=== PATIENT | male | born 1990 | race Caucasian/White ===

== ENCOUNTER 2017-03-26 10:25 | Inpatient (IN) | payer OTHER ==
--- NOTE | 2017-03-26 13:41 | HP ---
CIWA Score - CIWA Score Nausea/Vomitin-No Nausea/No Vomiting Muscle Tremors: 4-Moderate,w/Arms Extend Anxiety: 4-Mod. Anxious/Guarded Agitation: 4-Moderately Restless Paroxysmal Sweats: 3 Orientation: 0-Oriented Tacttile Disturbances: 0-None Auditory Disturbances: 0-None Visual Disturbances: 0-None Headache: 2-Mild CIWA-Ar Total Score: 17 Admission ROS BHS - HPI Chief Complaint: I need to be here for help. Allergies/Adverse Reactions: Allergies Allergy/AdvReac Type Severity Reaction Status Date / Time No Known Allergies Allergy Verified 03/26/17 13:24 History of Present Illness: pt is a 26yr old male with a history of alcohol, heroin, xanax dependence seeking detox for treatment. Exam Limitations: No Limitations - Ebola screening Have you traveled outside of the country in the last 21 days: No Have you had contact with anyone from an Ebola affected area: No Have you been sick,other than usual withdrawal symptoms: No Do you have a fever: No - Review of Systems Constitutional: Chills, Diaphoresis, Loss of Appetite, Night Sweats, Changes in sleep, Unintentional Wgt. Loss EENT: reports: Tearing Respiratory: reports: No Symptoms reported Cardiac: reports: No Symptoms Reported GI: reports: Poor Appetite, Poor Fluid Intake, Indigestion : reports: No Symptoms Reported Musculoskeletal: reports: Back Pain Integumentary: reports: Flushing, Sweating Neuro: reports: Headache, Tingling, Tremors Endocrine: reports: Excessive Sweating, Flushing, Intolerance to Cold, Intolerance to Heat Hematology: reports: No Symptoms Reported Psychiatric: reports: Judgement Intact, Mood/Affect Appropiate, Orientated x3, Agitated, Anxious Other Systems: Reviewed and Negative Patient History - Patient Medical History Hx Anemia: No Hx Asthma: Yes Hx Chronic Obstructive Pulmonary Disease (COPD): No Hx Cancer: No Hx Cardiac Disorders: No Hx Congestive Heart Failure: No Hx Hypertension: No Hx Hypercholesterolemia: No Hx Pacemaker: No HX Cerebrovascular Accident: No Hx Seizures: No Hx Dementia: No Hx Diabetes: No Hx Gastrointestinal Disorders: No Hx Liver Disease: No Hx Genitourinary Disorders: No Hx Sexually Transmitted Disorders: No Hx Renal Disease (ESRD): No Hx Thyroid Disease: No Hx Human Immunodeficiency Virus (HIV): No Hx Hepatitis C: No Hx Depression: Yes Hx Suicide Attempt: Yes (Tried to put head through window.) Hx Bipolar Disorder: Yes Hx Schizophrenia: No - Patient Surgical History Past Surgical History: Yes Hx Neurologic Surgery: No Hx Cataract Extraction: No Hx Cardiac Surgery: No Hx Lung Surgery: No Hx Breast Surgery: No Hx Breast Biopsy: No Hx Abdominal Surgery: No Hx Appendectomy: No Hx Cholecystectomy: No Hx Genitourinary Surgery: No Hx Section: No Hx Orthopedic Surgery: Yes (R thumb. sx for fx) Anesthesia Reaction: No - PPD History Previous Implant?: Yes Documented Results: Negative w/proof Implanted On Prior R Admission?: Yes Date: 06/21/16 Results: 0 mm PPD to be Administered?: No - Smoking Cessation Smoking history: Current every day smoker Have you smoked in the past 12 months: Yes Aproximately how many cigarettes per day: 20 Hx Chewing Tobacco Use: No Initiated information on smoking cessation: Yes 'Breaking Loose' booklet given: 03/26/17 - Substance & Tx. History Hx Alcohol Use: Yes Hx Substance Use: Yes Substance Use Type: Alcohol, Cocaine, Heroin Hx Substance Use Treatment: Yes ([facility] 05/2016) - Substances Abused Alprazolam (Xanax) Route: Oral Frequency: Daily Amount used: 8mg Age of first use: 15 Date of Last Use: 03/25/17 Benzodiazepine (Klonopin) Route: Oral Frequency: Daily Amount used: 6mg Age of first use: 15 Date of Last Use: 03/25/17 Cocaine Route: Injection Frequency: Daily Amount used: 1 gram Age of first use: 21 Date of Last Use: 03/25/17 Heroin Route: Injection Frequency: Daily Amount used: 10 bag Age of first use: 21 Date of Last Use: 03/25/17 Alcohol Route: Oral Frequency: Daily Amount used: 5 shots Age of first use: 17 Date of Last Use: 03/25/17 Family Disease History - Family Disease History Family History: Denies Admission Physical Exam S - Vital Signs Vital Signs: Vital Signs - 24 hr 03/26/17 11:27 Temperature 97.1 F L Pulse Rate 75 Respiratory 18 Rate Blood Pressure 118/63 - Physical General Appearance: Yes: Appropriately Dressed, Moderate Distress, Thin, Tremorous, Irritable, Sweating, Anxious HEENTM: Yes: Hearing grossly Normal, Normal Voice, Rhinorrhea Respiratory: Yes: Lungs Clear, Normal Breath Sounds, No Respiratory Distress Neck: Yes: No masses,lesions,Nodules Breast: Yes: Within Normal Limits Cardiology: Yes: Regular Rhythm, Regular Rate, S1, S2 Abdominal: Yes: Normal Bowel Sounds, Non Tender, Soft Genitourinary: Yes: Within Normal Limits Back: Yes: Normal Inspection Musculoskeletal: Yes: Back pain Extremities: Yes: Normal Capillary Refill, Normal Inspection, Tremors Neurological: Yes: Fully Oriented, Alert, Normal Response Integumentary: Yes: Normal Color, Track Dailey, Other (abscess to forearm) Lymphatic: Yes: Within Normal Limits - Diagnostic (1) Alcohol dependence with uncomplicated withdrawal Current Visit: Yes Status: Chronic (2) Bipolar disorder Current Visit: No Status: Acute (3) Cocaine dependence Current Visit: Yes Status: Chronic Qualifiers: Substance use status: uncomplicated Qualified Code(s): F14.20 - Cocaine dependence, uncomplicated (4) Methadone maintenance therapy patient Current Visit: Yes Status: Chronic Comment: last dose of 130mg given today at program pending verification. (5) Nicotine dependence Current Visit: Yes Status: Chronic Qualifiers: Nicotine product type: cigarettes Substance use status: uncomplicated Qualified Code(s): F17.210 - Nicotine dependence, cigarettes, uncomplicated (6) Sedative, hypnotic or anxiolytic dependence with withdrawal, uncomplicated Current Visit: Yes Status: Chronic Cleared for Admission [facility] - Detox or Rehab [facility] Level of Care: Medically Managed Detox Regimen/Protocol: Valium [facility] Breath Alcohol Content Breath Alcohol Content: 0 Urine Drug Screen - Results Drug Screen Negative: No Urine Drug Screen Results: MADHAVI-Cocaine, OPI-Opiates, BZO-Benzodiazepines, MTD- Methadone
[2017-03-26] MEDS ORDERED: P-EPHED 60MG/TRIPROLIDI 2.5MG TABLET PO PRN (13:45)
[2017-03-26] MEDS ORDERED: MAG HYDROX/AL HYDROX/SIMETH 30 ML UNIT-DOSE CUP PO PRN (13:45)
[2017-03-26] MEDS ORDERED: diphenhydrAMINE HCL 50 MG CAPSULE PO PRN (13:45)
[2017-03-26] MEDS ORDERED: MAGNESIUM CITRATE 300 ML BOTTLE PO PRN (13:45)
[2017-03-26] MEDS ORDERED: LOPERAMIDE HCL 2 MG CAPSULE PO PRN (13:45)
[2017-03-26] MEDS ORDERED: ACETAMINOPHEN 325 MG TABLET (FP) PO PRN (13:45)
[2017-03-26] MEDS ORDERED: MAGNESIUM HYDROX 2400MG/30ML ORAL SUSPENSION 30 ML CUP PO PRN (13:45)
[2017-03-26] MEDS ORDERED: NICOTINE POLACRILEX 4 MG GUM BUC PRN (13:45)
[2017-03-26] MEDS ORDERED: hydrOXYzine PAMOATE 50 MG CAPSULE (FP) PO PRN (13:45)
[2017-03-26] MEDS ORDERED: IBUPROFEN 400 MG TABLET (FP) PO PRN (13:45)
[2017-03-26] MEDS ORDERED: guaiFENesin/D-METHORPHAN HB 10 ML UNIT-DOSE CUPS PO PRN (13:45)
[2017-03-26] MEDS ORDERED: MENTHOL/PHENOL 1 EACH UD MM PRN (13:45)
[2017-03-26] MEDS ORDERED: ALBUTEROL SO4 6.7 GM HFA INHALER IH PRN (13:46)
[2017-03-26] MEDS ORDERED: diazePAM 5 MG TABLET PO ONE (14:48)
[2017-03-26] MEDS: diazePAM 5 MG TABLET PO SCH ×2 (15:19→22:17)
[2017-03-26 22:00] LABS: URINE APPEARANCE CLEAR; URINE BILIRUBIN NEGATIVE (NEGATIVE); URINE BLOOD NEGATIVE (NEGATIVE); URINE COLOR AMBER; URINE GLUCOSE (UA) NEGATIVE (NEGATIVE); URINE KETONE NEGATIVE (NEGATIVE); URINE LEUK ESTERASE NEGATIVE (NEGATIVE); URINE NITRITE NEGATIVE (NEGATIVE); URINE UROBILINOGEN NEGATIVE mg/dL (0.2-1.0)
[2017-03-26 22:06] LABS: URINE PROTEIN 1+ (NEGATIVE)
[2017-03-26 22:14] LABS: URINE MUCUS MANY; URINE RBC 1 /hpf (0-3); URINE WBC 1 /hpf (3-5)
[2017-03-26] MEDS: SULFAMETHOXAZOLE/TRIMETHOPRIM 800MG/160MG D.S. TABLET PO SCH (22:15)
[2017-03-26] MEDS: THIAMINE HCL 100 MG TABLET (FP) PO SCH (22:15)
[2017-03-27] MEDS ORDERED: METHADONE HCL 10 MG TABLET ONE (05:12)
[2017-03-27] MEDS ORDERED: METHADONE HCL 40 MG DISPERSABLE TABLET ONE (05:13)
[2017-03-27] MEDS: METHADONE 120 MG, METHADONE 10 MG PO SCH (05:21)
[2017-03-27] MEDS: diazePAM 5 MG TABLET PO SCH ×3 (05:21→22:05)
[2017-03-27] MEDS ORDERED: METHADONE HCL 10 MG TABLET PO SCH (06:00)
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
[2017-03-27] MEDS: PRENATAL VITAMINS W/ FOLIC ACID TABLET (FP) PO SCH (10:05)
[2017-03-27] MEDS: SULFAMETHOXAZOLE/TRIMETHOPRIM 800MG/160MG D.S. TABLET PO SCH ×2 (10:05→22:06)
[2017-03-27] MEDS: NICOTINE 21 MG/24 HOURS TOPICAL PATCH TD SCH (10:06)
[2017-03-27] MEDS: diazePAM 5 MG TABLET PO PRN ×2 (10:06→20:05)
[2017-03-27 10:34] LABS: MCH 31.8 pg (25.7-33.7); MCHC 33.8 g/dl (32.0-35.9); MEAN CELL VOLUME 94.1 fl (80-96); MEAN PLT VOLUME 9.3 fl (7.5-11.1); PLATELET COUNT 245 K/MM3 (134-434); RDW 13.2 % (11.9-15.9); WHITE BLOOD COUNT 4.1 K/mm3 (4.0-10.0)
[2017-03-27 10:53] LABS: ALBUMIN 3.6 g/dl (3.4-5.0); ALK PHOS 69 U/L (45-117); ANION GAP 7 (8-16); BILIRUBIN,TOTAL 0.6 mg/dL (0.2-1.0); CALCIUM 8.9 mg/dL (8.5-10.1); CO2 30 mmol/L (21-32); CREATININE 1.1 mg/dL (0.7-1.3); GLUCOSE,RANDOM 107 mg/dL (74-106); SGOT/AST 20 U/L (15-37); SGPT/ALT 24 U/L (12-78); TOT PROT 7.5 g/dl (6.4-8.2)
--- NOTE | 2017-03-27 12:46 | PN ---
S CIWA - CIWA Score Nausea/Vomitin Muscle Tremors: 4-Moderate,w/Arms Extend Anxiety: 2 Agitation: 2 Paroxysmal Sweats: 3 Orientation: 0-Oriented Tacttile Disturbances: 0-None Auditory Disturbances: 2-Mild Harshness/Frighten Visual Disturbances: 0-None Headache: 2-Mild CIWA-Ar Total Score: 18 BHS Progress Note (SOAP) Subjective: Interrupted sleep, Stomach Cramping, Tremors, H/A, Lower Back Ache, Body Aches, Anxious, Fatigue. Objective: PT. A & O X 3, OBSERVED AMBULATING ON UNIT. NO ACUTE DISTRESS. 03/27/17 12:44 Vital Signs Temperature 97.3 F L 03/27/17 09:53 Pulse Rate 72 03/27/17 09:53 Respiratory Rate 18 03/27/17 09:53 Blood Pressure 122/70 03/27/17 09:53 O2 Sat by Pulse Oximetry (%) Laboratory Tests 03/26/17 03/27/17 03/27/17 21:00 06:15 06:15 WBC 4.1 D RBC 3.88 L Hgb 12.3 Hct 36.5 MCV 94.1 MCH 31.8 MCHC 33.8 RDW 13.2 D Plt Count 245 D MPV 9.3 Sodium 140 Potassium 4.3 Chloride 103 Carbon Dioxide 30 Anion Gap 7 L BUN 16 Creatinine 1.1 D Creat Clearance w eGFR > 60 Random Glucose 107 H Calcium 8.9 Total Bilirubin 0.6 AST 20 ALT 24 D Alkaline Phosphatase 69 D Total Protein 7.5 Albumin 3.6 Urine Color Elvi Urine Appearance Clear Urine pH 5.0 D Ur Specific [place] 1.025 Urine Protein 1+ H Urine Glucose (UA) Negative Urine Ketones Negative Urine Blood Negative Urine Nitrite Negative Urine Bilirubin Negative Urine Urobilinogen Negative Ur Leukocyte Esterase Negative Urine RBC 1 Urine WBC 1 Ur Epithelial Cells Rare Urine Mucus Many LABS NOTED. RPR RESULT PENDING. 03/27/17 12:46 Assessment: 03/27/17 12:45 WITHDRAWAL SYMPTOMS. Plan: CONTINUE DETOX. INCREASE PO FLUID INTAKE.
[2017-03-27] MEDS: busPIRone HCL 5 MG TABLET PO SCH ×2 (12:48→22:06)
[2017-03-27] MEDS: risperiDONE 0.25 MG TABLET (FP) PO SCH ×2 (12:49→22:06)
[2017-03-27] MEDS: THIAMINE HCL 100 MG TABLET (FP) PO SCH (22:05)
[2017-03-27] MEDS: DIVALPROEX NA *ER* EXTEND REL 500 MG TABLET.SA (FP) PO SCH (22:06)
[2017-03-28] MEDS ORDERED: METHADONE HCL 10 MG TABLET ONE (04:28)
[2017-03-28] MEDS ORDERED: METHADONE HCL 40 MG DISPERSABLE TABLET ONE (04:28)
[2017-03-28] MEDS: METHADONE 120 MG, METHADONE 10 MG PO SCH (05:25)
[2017-03-28] MEDS: diazePAM 5 MG TABLET PO PRN ×2 (05:27→19:23)
[2017-03-28] MEDS: NICOTINE 21 MG/24 HOURS TOPICAL PATCH TD SCH (10:09)
[2017-03-28] MEDS: diazePAM 5 MG TABLET PO SCH ×2 (10:09→22:09)
[2017-03-28] MEDS: risperiDONE 0.25 MG TABLET (FP) PO SCH ×2 (10:09→22:10)
[2017-03-28] MEDS: PRENATAL VITAMINS W/ FOLIC ACID TABLET (FP) PO SCH (10:09)
[2017-03-28] MEDS: busPIRone HCL 5 MG TABLET PO SCH ×2 (10:09→22:10)
[2017-03-28] MEDS: SULFAMETHOXAZOLE/TRIMETHOPRIM 800MG/160MG D.S. TABLET PO SCH ×2 (11:22→22:09)
[2017-03-28] MEDS ORDERED: BISACODYL 5 MG TABLET.DR (FP) PO ONE (13:07)
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
[2017-03-28] MEDS: SENNOSIDES 8.6MG TABLET (FP) PO SCH (22:09)
[2017-03-28] MEDS: THIAMINE HCL 100 MG TABLET (FP) PO SCH (22:09)
[2017-03-28] MEDS: DIVALPROEX NA *ER* EXTEND REL 500 MG TABLET.SA (FP) PO SCH (22:10)
[2017-03-29] MEDS ORDERED: METHADONE HCL 10 MG TABLET ONE (04:45)
[2017-03-29] MEDS ORDERED: METHADONE HCL 40 MG DISPERSABLE TABLET ONE (04:46)
[2017-03-29] MEDS: METHADONE 120 MG, METHADONE 10 MG PO SCH (05:24)
[2017-03-29] MEDS: diazePAM 5 MG TABLET PO PRN (05:25)
--- NOTE | 2017-03-29 10:00 | EKG ---
Test Reason : Blood Pressure : / mmHG Vent. Rate : 064 BPM Atrial Rate : 064 BPM P-R Int : 136 ms QRS Dur : 088 ms QT Int : 440 ms P-R-T Axes : 058 049 049 degrees QTc Int : 453 ms NORMAL SINUS RHYTHM WITH SINUS ARRHYTHMIA NORMAL ECG NO PREVIOUS ECGS AVAILABLE Confirmed by YAHAIRA PEREZ MD ([id number]) on 03/29/2017 9:59:38 AM Referred By: Confirmed By:YAHAIRA PEREZ MD
[2017-03-29] MEDS: NICOTINE 21 MG/24 HOURS TOPICAL PATCH TD SCH (10:19)
[2017-03-29] MEDS: PRENATAL VITAMINS W/ FOLIC ACID TABLET (FP) PO SCH (10:19)
[2017-03-29] MEDS: diazePAM 5 MG TABLET PO SCH ×2 (10:19→22:11)
[2017-03-29] MEDS: SULFAMETHOXAZOLE/TRIMETHOPRIM 800MG/160MG D.S. TABLET PO SCH ×2 (10:19→22:11)
[2017-03-29] MEDS: busPIRone HCL 5 MG TABLET PO SCH ×2 (10:19→22:12)
[2017-03-29] MEDS: risperiDONE 0.25 MG TABLET (FP) PO SCH ×2 (10:19→22:12)
--- NOTE | 2017-03-29 11:21 | PN ---
BHS Progress Note (SOAP) Subjective: Sweating,interrupted sleep,restless Objective: 03/29/17 11:20 Vital Signs - 8 hr 03/29/17 03/29/17 03/29/17 03:30 04:00 09:09 Temperature 96.8 F L 96.7 F L Pulse Rate 75 94 H Respiratory 16 18 16 Rate Blood Pressure 109/65 137/81 Laboratory Last Values WBC 4.1 K/mm3 (4.0-10.0) D 03/27/17 06:15 RBC 3.88 M/mm3 (4.00-5.60) L 03/27/17 06:15 Hgb 12.3 GM/dL (11.7-16.9) 03/27/17 06:15 Hct 36.5 % (35.4-49) 03/27/17 06:15 MCV 94.1 fl (80-96) 03/27/17 06:15 MCH 31.8 pg (25.7-33.7) 03/27/17 06:15 MCHC 33.8 g/dl (32.0-35.9) 03/27/17 06:15 RDW 13.2 % (11.9-15.9) D 03/27/17 06:15 Plt Count 245 K/MM3 (134-434) D 03/27/17 06:15 MPV 9.3 fl (7.5-11.1) 03/27/17 06:15 Sodium 140 mmol/L (136-145) 03/27/17 06:15 Potassium 4.3 mmol/L (3.5-5.1) 03/27/17 06:15 Chloride 103 mmol/L (98-107) 03/27/17 06:15 Carbon Dioxide 30 mmol/L (21-32) 03/27/17 06:15 Anion Gap 7 (8-16) L 03/27/17 06:15 BUN 16 mg/dL (7-18) 03/27/17 06:15 Creatinine 1.1 mg/dL (0.7-1.3) D 03/27/17 06:15 Creat Clearance w eGFR > 60 (>60) 03/27/17 06:15 Random Glucose 107 mg/dL (74-106) H 03/27/17 06:15 Calcium 8.9 mg/dL (8.5-10.1) 03/27/17 06:15 Total Bilirubin 0.6 mg/dL (0.2-1.0) 03/27/17 06:15 AST 20 U/L (15-37) 03/27/17 06:15 ALT 24 U/L (12-78) D 03/27/17 06:15 Alkaline Phosphatase 69 U/L (45-117) D 03/27/17 06:15 Total Protein 7.5 g/dl (6.4-8.2) 03/27/17 06:15 Albumin 3.6 g/dl (3.4-5.0) 03/27/17 06:15 Urine Color Elvi 03/26/17 21:00 Urine Appearance Clear 03/26/17 21:00 Urine pH 5.0 (5.0-8.0) D 03/26/17 21:00 Ur Specific [place] 1.025 (1.005-1.025) 03/26/17 21:00 Urine Protein 1+ (NEGATIVE) H 03/26/17 21:00 Urine Glucose (UA) Negative (NEGATIVE) 03/26/17 21:00 Urine Ketones Negative (NEGATIVE) 03/26/17 21:00 Urine Blood Negative (NEGATIVE) 03/26/17 21:00 Urine Nitrite Negative (NEGATIVE) 03/26/17 21:00 Urine Bilirubin Negative (NEGATIVE) 03/26/17 21:00 Urine Urobilinogen Negative mg/dL (0.2-1.0) 03/26/17 21:00 Ur Leukocyte Esterase Negative (NEGATIVE) 03/26/17 21:00 Urine RBC 1 /hpf (0-3) 03/26/17 21:00 Urine WBC 1 /hpf (3-5) 03/26/17 21:00 Ur Epithelial Cells Rare /hpf (FEW) 03/26/17 21:00 Urine Mucus Many 03/26/17 21:00 RPR Titer Nonreactive (NONREACTIVE) 03/27/17 06:15 labs noted Assessment: 03/29/17 11:21 withdrawal sx. Plan: continue detox
[2017-03-29] MEDS: THIAMINE HCL 100 MG TABLET (FP) PO SCH (22:11)
[2017-03-29] MEDS: DIVALPROEX NA *ER* EXTEND REL 500 MG TABLET.SA (FP) PO SCH (22:11)
[2017-03-29] MEDS: SENNOSIDES 8.6MG TABLET (FP) PO SCH (22:12)
[2017-03-30] MEDS ORDERED: METHADONE HCL 10 MG TABLET ONE (05:02)
[2017-03-30] MEDS ORDERED: METHADONE HCL 40 MG DISPERSABLE TABLET ONE (05:03)
[2017-03-30] MEDS: METHADONE 120 MG, METHADONE 10 MG PO SCH (05:33)
[2017-03-30 09:48] VITALS: BP 120/75; PULSE 92; TEMP 97.8
[2017-03-30] MEDS ORDERED: diazePAM 5 MG TABLET PO SCH (10:00)
== END 2017-03-30 08:34 | disposition home or self-care (01) | DRG 773 ==
LOC: YASAS 10:25 → Y3N 14:40
PROVIDERS: ADMIT Internal Medicine; ATTEND Surgery
PROC: HZ2ZZZZ Detoxification Services for Substance Abuse Treatment (ICD-10-PCS; principal; 2017-03-30)
DX: F11.20 Opioid dependence, uncomplicated (principal); F13.230 Sedative, hypnotic or anxiolytic dependence with withdrawal, uncomplicated; F10.230 Alcohol dependence with withdrawal, uncomplicated; F14.20 Cocaine dependence, uncomplicated; F17.210 Nicotine dependence, cigarettes, uncomplicated; F31.9 Bipolar disorder, unspecified; F43.10 Post-traumatic stress disorder, unspecified; F90.9 Attention-deficit hyperactivity disorder, unspecified type
CPT/HCPCS: 36415; 80053; 81003; 81015; 85027; 86593; 93005; 93010

== ENCOUNTER 2017-06-18 11:39 | Inpatient (IN) | payer OTHER ==
[2017-06-18 12:51] VITALS: BMI 23.1
--- NOTE | 2017-06-18 16:29 | HP ---
CIWA Score - CIWA Score Nausea/Vomitin-No Nausea/No Vomiting Muscle Tremors: 4-Moderate,w/Arms Extend Anxiety: 4-Mod. Anxious/Guarded Agitation: 4-Moderately Restless Paroxysmal Sweats: 1-Minimal Palms Moist Orientation: 0-Oriented Tacttile Disturbances: 0-None Auditory Disturbances: 0-None Visual Disturbances: 0-None Headache: 1-Very Mild CIWA-Ar Total Score: 14 Admission ROS S - HPI Chief Complaint: withdrawal sx Allergies/Adverse Reactions: Allergies Allergy/AdvReac Type Severity Reaction Status Date / Time No Known Allergies Allergy Verified 06/18/17 16:08 History of Present Illness: 26 YEARS OLD MALE WITH LONG HISTORY OF XANAX NICOTINE DEPENDENCE, TAKES METHADONE 130 MG DAILY, HAS ASTHMA AND BIPOLAR II IS ADMITTED TO DETOX IV COCAINE LEFT FORE ARM SWELLING, ERYTHEMA, PAIN 2/10, CELLULITES, BEGIN KEFLEX 500 Q6H X 4 DAYS Exam Limitations: No Limitations - Ebola screening Have you traveled outside of the country in the last 21 days: No Have you had contact with anyone from an Ebola affected area: No Have you been sick,other than usual withdrawal symptoms: No Do you have a fever: No - Review of Systems Constitutional: Loss of Appetite, Changes in sleep, Unintentional Wgt. Loss EENT: reports: No Symptoms Reported Respiratory: reports: SOB with Exertion Cardiac: reports: No Symptoms Reported GI: reports: Poor Appetite, Poor Fluid Intake, Abdominal cramping : reports: No Symptoms Reported Musculoskeletal: reports: Back Pain, Joint Pain, Muscle Pain (LEFT FOR ARM), Neck Pain, Other (RIGHT THUMB LIMITED MOBILITY DUE TO HISTORY OF FX, SURGICALLY CORRECTED) Integumentary: reports: Change in Color (LEFT FORE ARM IV COCAINE) Neuro: reports: Seizure (2006 XANAX WITHDRAWAL RELATED), Tremors Endocrine: reports: No Symptoms Reported Hematology: reports: No Symptoms Reported Psychiatric: reports: Judgement Intact, Orientated x3, Anxious, Depressed Other Systems: Reviewed and Negative Patient History - Patient Medical History Hx Anemia: No Hx Asthma: Yes Hx Chronic Obstructive Pulmonary Disease (COPD): Yes Hx Cancer: No Hx Cardiac Disorders: No Hx Congestive Heart Failure: No Hx Hypertension: No Hx Hypercholesterolemia: No Hx Pacemaker: No HX Cerebrovascular Accident: No Hx Seizures: Yes (2006 LAST EPISODE NO TREATMENT) Hx Dementia: No Hx Diabetes: No Hx Gastrointestinal Disorders: No Hx Liver Disease: No Hx Genitourinary Disorders: No Hx Sexually Transmitted Disorders: No Hx Renal Disease (ESRD): No Hx Thyroid Disease: No Hx Human Immunodeficiency Virus (HIV): No Hx Hepatitis C: No Hx Depression: No Hx Suicide Attempt: Yes (Tried to put head through window.) Hx Bipolar Disorder: Yes Hx Schizophrenia: No - Patient Surgical History Past Surgical History: Yes Hx Neurologic Surgery: No Hx Cataract Extraction: No Hx Cardiac Surgery: No Hx Lung Surgery: No Hx Breast Surgery: No Hx Breast Biopsy: No Hx Abdominal Surgery: No Hx Appendectomy: No Hx Cholecystectomy: No Hx Genitourinary Surgery: No Hx Orthopedic Surgery: Yes (R thumb. sx for fx) Anesthesia Reaction: No - PPD History Previous Implant?: Yes Documented Results: Negative w/proof Implanted On Prior [facility] Admission?: Yes Date: 06/21/16 Results: 0 mm PPD to be Administered?: Yes - Smoking Cessation Smoking history: Current every day smoker Have you smoked in the past 12 months: Yes Aproximately how many cigarettes per day: 20 Cigars Per Day: 0 Hx Chewing Tobacco Use: No Initiated information on smoking cessation: Yes 'Breaking Loose' booklet given: 06/18/17 - Substance & Tx. History Hx Alcohol Use: No Hx Substance Use: Yes Substance Use Type: Heroin, Tranquilizers Hx Substance Use Treatment: Yes (03/26-03/30/17 [facility]) Family Disease History - Family Disease History Family Disease History: [place]: Grandparent, Other: Mother (BACK PAIN KILLER) Admission Physical Exam BHS - Vital Signs Vital Signs: Vital Signs - 24 hr 06/18/17 12:48 Temperature 97.3 F L Pulse Rate 73 Respiratory 18 Rate Blood Pressure 113/71 - Physical General Appearance: Yes: Appropriately Dressed, Mild Distress, Thin, Tremorous, Irritable, Sweating, Anxious HEENTM: Yes: Hearing grossly Normal, Normal ENT Inspection, Normocephalic, Normal Voice Respiratory: Yes: Chest Non-Tender, No Respiratory Distress, No Accessory Muscle Use, Wheezing, Hyperresonant, Inspiration Neck: Yes: Supple, Trachea in good position Breast: Yes: Breasts Symetrical Cardiology: Yes: Regular Rhythm, Regular Rate, S1, S2 Abdominal: Yes: Non Tender, Soft, Decreased BS Genitourinary: Yes: Within Normal Limits Back: Yes: Normal Inspection Musculoskeletal: Yes: full range of Motion, Gait Steady, Muscle Pain (LEFT FOR ARM) Extremities: Yes: Normal Range of Motion, Non-Tender, Tremors, Swelling (KRIS FOR ARM) Neurological: Yes: Fully Oriented, Alert, Motor Strength 5/5, Normal Response, Depressed Affect Integumentary: Yes: Warm, Track Dailey Lymphatic: Yes: Within Normal Limits - Diagnostic (1) Methadone maintenance therapy patient Current Visit: Yes Status: Chronic Comment: last dose of 130mg pending verification. (2) Nicotine dependence Current Visit: Yes Status: Acute Qualifiers: Nicotine product type: cigarettes Substance use status: in withdrawal Qualified Code(s): F17.213 - Nicotine dependence, cigarettes, with withdrawal; F17.213 - Nicotine dependence, cigarettes, with withdrawal (3) Sedative, hypnotic or anxiolytic dependence with withdrawal, uncomplicated Current Visit: Yes Status: Acute (4) Asthma Current Visit: Yes Status: Chronic Qualifiers: Asthma severity: moderate Asthma complication type: with status asthmaticus (5) Weight loss Current Visit: Yes Status: Acute (6) Bipolar II disorder Current Visit: Yes Status: Suspected (7) Cellulitis of arm, left Current Visit: Yes Status: Acute Comment: KEFLEX 500 MG Q6H X 4 DAYS Cleared for Admission S - Detox or Rehab S Level of Care: Medically Managed Detox Regimen/Protocol: Valium S Breath Alcohol Content Breath Alcohol Content: 0 Urine Drug Screen - Control Is Test Valid: Yes - Results Drug Screen Negative: No Urine Drug Screen Results: MADHAVI-Cocaine, BZO-Benzodiazepines, MTD-Methadone
[2017-06-18] MEDS ORDERED: MAG HYDROX/AL HYDROX/SIMETH 30 ML UNIT-DOSE CUP PO PRN (16:37)
[2017-06-18] MEDS ORDERED: ACETAMINOPHEN 325 MG TABLET (FP) PO PRN (16:37)
[2017-06-18] MEDS ORDERED: guaiFENesin/D-METHORPHAN HB 10 ML UNIT-DOSE CUPS PO PRN (16:37)
[2017-06-18] MEDS ORDERED: MENTHOL/PHENOL 1 EACH UD MM PRN (16:37)
[2017-06-18] MEDS ORDERED: diphenhydrAMINE HCL 50 MG CAPSULE PO PRN (16:37)
[2017-06-18] MEDS ORDERED: MAGNESIUM CITRATE 300 ML BOTTLE PO PRN (16:37)
[2017-06-18] MEDS ORDERED: IBUPROFEN 400 MG TABLET (FP) PO PRN (16:37)
[2017-06-18] MEDS ORDERED: P-EPHED 60MG/TRIPROLIDI 2.5MG TABLET PO PRN (16:37)
[2017-06-18] MEDS ORDERED: LOPERAMIDE HCL 2 MG CAPSULE PO PRN (16:37)
[2017-06-18] MEDS ORDERED: MAGNESIUM HYDROX 2400MG/30ML ORAL SUSPENSION 30 ML CUP PO PRN (16:37)
[2017-06-18] MEDS ORDERED: NICOTINE 21 MG/24 HOURS TOPICAL PATCH TD PRN (16:37)
[2017-06-18] MEDS ORDERED: ALBUTEROL SO4 18 GM HFA INHALER IH PRN (16:39)
[2017-06-18] MEDS ORDERED: ALBUTEROL SO4 2.5/IPRATROPIUM 0.5 INH SOL 3 ML VIAL.NEB. NEB PRN (16:39)
[2017-06-18] MEDS ORDERED: DOCUSATE SODIUM 100 MG CAPSULE (FP) PO PRN (16:40)
[2017-06-18] MEDS ORDERED: diazePAM 5 MG TABLET PO ONE (17:30)
[2017-06-18] MEDS: BACITRACIN 0.9 GM PACKET TP SCH ×2 (18:38→22:20)
[2017-06-18] MEDS: CEPHALEXIN MONOHYDRATE 500 MG CAPSULE (UD) PO SCH ×2 (18:38→23:09)
[2017-06-18] MEDS: NICOTINE POLACRILEX 4 MG GUM BC PRN ×2 (18:39→21:02)
[2017-06-18 22:07] LABS: URINE APPEARANCE SLCLOUDY; URINE BILIRUBIN NEGATIVE (NEGATIVE); URINE BLOOD NEGATIVE (NEGATIVE); URINE COLOR YELLOW; URINE GLUCOSE (UA) NEGATIVE (NEGATIVE); URINE KETONE NEGATIVE (NEGATIVE); URINE NITRITE NEGATIVE (NEGATIVE); URINE PROTEIN NEGATIVE (NEGATIVE); URINE UROBILINOGEN NEGATIVE mg/dL (0.2-1.0)
[2017-06-18] MEDS: diazePAM 5 MG TABLET PO SCH (22:20)
[2017-06-18] MEDS: THIAMINE HCL 100 MG TABLET (FP) PO SCH (22:21)
[2017-06-19] MEDS: CEPHALEXIN MONOHYDRATE 500 MG CAPSULE (UD) PO SCH ×3 (06:20→17:28)
[2017-06-19] MEDS: diazePAM 5 MG TABLET PO SCH ×3 (06:20→22:27)
[2017-06-19] MEDS ORDERED: METHADONE HCL 10 MG TABLET PO SCH (08:45)
[2017-06-19 09:04] LABS: PLATELET COUNT 275 K/MM3 (134-434); WHITE BLOOD COUNT 4.8 K/mm3 (4.0-10.0)
[2017-06-19 09:06] LABS: MCH 29.8 pg (25.7-33.7); MCHC 32.4 g/dl (32.0-35.9); MEAN CELL VOLUME 91.8 fl (80-96); MEAN PLT VOLUME 8.3 fl (7.5-11.1); RDW 14.4 % (11.9-15.9)
[2017-06-19] MEDS ORDERED: METHADONE 120 MG, METHADONE 10 MG PO SCH (09:15)
[2017-06-19] MEDS ORDERED: METHADONE HCL 40 MG DISPERSABLE TABLET ONE (09:39)
[2017-06-19] MEDS ORDERED: METHADONE HCL 10 MG TABLET ONE (09:39)
[2017-06-19] MEDS ORDERED: METHADONE 120 MG, METHADONE 10 MG PO ONE (09:45)
[2017-06-19 10:17] LABS: URINE LEUK ESTERASE Negative (NEGATIVE)
[2017-06-19] MEDS: PRENATAL VITAMINS W/ FOLIC ACID TABLET (FP) PO SCH (10:45)
[2017-06-19] MEDS: diazePAM 5 MG TABLET PO PRN ×2 (10:45→17:28)
[2017-06-19] MEDS: BACITRACIN 0.9 GM PACKET TP SCH ×4 (10:45→22:26)
[2017-06-19] MEDS: NICOTINE POLACRILEX 4 MG GUM BC PRN ×3 (10:49→22:29)
[2017-06-19 11:03] LABS: ALBUMIN 3.3 g/dl (3.4-5.0); ALK PHOS 74 U/L (45-117); ANION GAP 7 (8-16); BILIRUBIN,TOTAL 0.3 mg/dL (0.2-1.0); CALCIUM 8.7 mg/dL (8.5-10.1); CO2 28 mmol/L (21-32); CREATININE 0.8 mg/dL (0.7-1.3); GLUCOSE,RANDOM 83 mg/dL (74-106); SGOT/AST 22 U/L (15-37); SGPT/ALT 34 U/L (12-78); TOT PROT 7.1 g/dl (6.4-8.2)
--- NOTE | 2017-06-19 11:40 | PN ---
S CIWA - CIWA Score Nausea/Vomitin-Mild Nausea/No Vomiting Muscle Tremors: 3 Anxiety: 4-Mod. Anxious/Guarded Agitation: 4-Moderately Restless Paroxysmal Sweats: 1-Minimal Palms Moist Orientation: 0-Oriented Tacttile Disturbances: 1-Very Mild Itch/Numbness Auditory Disturbances: 1-Very Mild Visual Disturbances: 2-Mild Sensitivity Headache: 1-Very Mild CIWA-Ar Total Score: 18 BHS Progress Note (SOAP) Subjective: anxious, poor sleep, shaky Objective: 06/19/17 11:39 Laboratory Tests 06/18/17 06/19/17 06/19/17 21:00 07:50 07:50 WBC 4.8 RBC 4.07 Hgb 12.1 Hct 37.4 MCV 91.8 MCH 29.8 MCHC 32.4 RDW 14.4 Plt Count 275 MPV 8.3 D Sodium 139 Potassium 4.5 Chloride 104 Carbon Dioxide 28 Anion Gap 7 L BUN 13 Creatinine 0.8 D Creat Clearance w eGFR > 60 Random Glucose 83 D Calcium 8.7 Total Bilirubin 0.3 D AST 22 ALT 34 D Alkaline Phosphatase 74 Total Protein 7.1 Albumin 3.3 L Urine Color Yellow Urine Appearance Slcloudy Urine pH 6.0 Ur Specific [place] 1.020 Urine Protein Negative Urine Glucose (UA) Negative Urine Ketones Negative Urine Blood Negative Urine Nitrite Negative Urine Bilirubin Negative Urine Urobilinogen Negative Ur Leukocyte Esterase Negative Valproic Acid RPR Titer 06/19/17 06/19/17 07:50 07:50 WBC RBC Hgb Hct MCV MCH MCHC RDW Plt Count MPV Sodium Potassium Chloride Carbon Dioxide Anion Gap BUN Creatinine Creat Clearance w eGFR Random Glucose Calcium Total Bilirubin AST ALT Alkaline Phosphatase Total Protein Albumin Urine Color Urine Appearance Urine pH Ur Specific [place] Urine Protein Urine Glucose (UA) Urine Ketones Urine Blood Urine Nitrite Urine Bilirubin Urine Urobilinogen Ur Leukocyte Esterase Valproic Acid < 3.0 L RPR Titer Nonreactive Vital Signs - 24 hr 06/18/17 06/18/17 06/18/17 12:48 18:33 23:46 Temperature 97.3 F L 98.1 F 98.2 F Pulse Rate 73 65 78 Respiratory 18 18 18 Rate Blood Pressure 113/71 108/60 122/61 06/19/17 06/19/17 06/19/17 01:18 04:28 06:30 Temperature 98.1 F Pulse Rate 86 Respiratory 18 18 16 Rate Blood Pressure 89/63 06/19/17 11:07 Temperature 97.7 F Pulse Rate 81 Respiratory 16 Rate Blood Pressure 116/50 Assessment: 06/19/17 11:39 ongoing withdrawal Plan: cont detox protocol
--- NOTE | 2017-06-19 13:21 | EKG ---
Test Reason : Blood Pressure : / mmHG Vent. Rate : 055 BPM Atrial Rate : 055 BPM P-R Int : 134 ms QRS Dur : 092 ms QT Int : 450 ms P-R-T Axes : 057 052 061 degrees QTc Int : 430 ms SINUS BRADYCARDIA POOR R WAVE PROGRESSION ABNORMAL ECG WHEN COMPARED WITH ECG OF 26-MAR-2017 14:18, NO SIGNIFICANT CHANGE WAS FOUND Confirmed by KENYA CHARLES, JUAN M ([id number]) on 06/19/2017 1:21:26 PM Referred By: Confirmed By:JUAN M ZAMBRANO MD
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
[2017-06-19] MEDS ORDERED: OLANZapine 7.5 MG TABLET PO SCH (22:00)
[2017-06-19] MEDS: OLANZapine 7.5 MG TABLET PO SCH (22:26)
[2017-06-19] MEDS: THIAMINE HCL 100 MG TABLET (FP) PO SCH (22:26)
[2017-06-19] MEDS: DIVALPROEX SODIUM 500 MG TABLET E.C. PO SCH (22:26)
[2017-06-19] MEDS: busPIRone HCL 5 MG TABLET PO SCH (22:26)
[2017-06-20] MEDS: CEPHALEXIN MONOHYDRATE 500 MG CAPSULE (UD) PO SCH ×5 (00:12→23:56)
[2017-06-20] MEDS ORDERED: METHADONE HCL 40 MG DISPERSABLE TABLET ONE (04:14)
[2017-06-20] MEDS ORDERED: METHADONE HCL 10 MG TABLET ONE (04:14)
[2017-06-20] MEDS ORDERED: METHADONE 120 MG, METHADONE 10 MG PO SCH (06:00)
[2017-06-20] MEDS: METHADONE 120 MG, METHADONE 10 MG PO SCH (06:01)
[2017-06-20] MEDS: diazePAM 5 MG TABLET PO PRN ×2 (07:30→18:31)
[2017-06-20] MEDS: busPIRone HCL 5 MG TABLET PO SCH ×2 (11:00→22:07)
[2017-06-20] MEDS: BACITRACIN 0.9 GM PACKET TP SCH ×4 (11:00→22:07)
[2017-06-20] MEDS: PRENATAL VITAMINS W/ FOLIC ACID TABLET (FP) PO SCH (11:00)
[2017-06-20] MEDS: diazePAM 5 MG TABLET PO SCH ×2 (11:00→22:07)
[2017-06-20] MEDS: DIVALPROEX SODIUM 500 MG TABLET E.C. PO SCH ×2 (11:00→22:07)
--- NOTE | 2017-06-20 13:31 | PN ---
S CIWA - CIWA Score Nausea/Vomitin-No Nausea/No Vomiting Muscle Tremors: 3 Anxiety: 4-Mod. Anxious/Guarded Agitation: 4-Moderately Restless Paroxysmal Sweats: 3 Orientation: 0-Oriented Tacttile Disturbances: 0-None Auditory Disturbances: 0-None Visual Disturbances: 0-None Headache: 0-None Present CIWA-Ar Total Score: 14 BHS Progress Note (SOAP) Subjective: Anxiety,tremors,sweating,interrupted sleep,restless. Objective: 06/20/17 13:29 Vital Signs - 8 hr 06/20/17 06/20/17 06:00 10:00 Temperature 97.7 F 96.8 F L Pulse Rate 72 76 Respiratory 18 18 Rate Blood Pressure 111/59 93/42 Laboratory Tests 06/18/17 06/19/17 06/19/17 21:00 07:50 07:50 WBC 4.8 RBC 4.07 Hgb 12.1 Hct 37.4 MCV 91.8 MCH 29.8 MCHC 32.4 RDW 14.4 Plt Count 275 MPV 8.3 D Sodium 139 Potassium 4.5 Chloride 104 Carbon Dioxide 28 Anion Gap 7 L BUN 13 Creatinine 0.8 D Creat Clearance w eGFR > 60 Random Glucose 83 D Calcium 8.7 Total Bilirubin 0.3 D AST 22 ALT 34 D Alkaline Phosphatase 74 Total Protein 7.1 Albumin 3.3 L Urine Color Yellow Urine Appearance Slcloudy Urine pH 6.0 Ur Specific [place] 1.020 Urine Protein Negative Urine Glucose (UA) Negative Urine Ketones Negative Urine Blood Negative Urine Nitrite Negative Urine Bilirubin Negative Urine Urobilinogen Negative Ur Leukocyte Esterase Negative Valproic Acid RPR Titer 06/19/17 06/19/17 06/20/17 07:50 07:50 08:45 WBC RBC Hgb Hct MCV MCH MCHC RDW Plt Count MPV Sodium Potassium Chloride Carbon Dioxide Anion Gap BUN Creatinine Creat Clearance w eGFR Random Glucose Calcium Total Bilirubin AST ALT Alkaline Phosphatase Total Protein Albumin Urine Color Urine Appearance Urine pH Ur Specific [place] Urine Protein Urine Glucose (UA) Urine Ketones Urine Blood Urine Nitrite Urine Bilirubin Urine Urobilinogen Ur Leukocyte Esterase Valproic Acid < 3.0 L 49.771 L RPR Titer Nonreactive labs noted Assessment: 06/20/17 13:29 Withdrawal sx. Plan: Continue detox
[2017-06-20] MEDS: THIAMINE HCL 100 MG TABLET (FP) PO SCH (22:07)
[2017-06-20] MEDS: OLANZapine 7.5 MG TABLET PO SCH (22:07)
[2017-06-20] MEDS: NICOTINE POLACRILEX 4 MG GUM BC PRN (22:08)
[2017-06-21] MEDS ORDERED: METHADONE HCL 40 MG DISPERSABLE TABLET ONE (03:07)
[2017-06-21] MEDS ORDERED: METHADONE HCL 10 MG TABLET ONE (03:08)
[2017-06-21] MEDS: METHADONE 120 MG, METHADONE 10 MG PO SCH (05:40)
[2017-06-21] MEDS: CEPHALEXIN MONOHYDRATE 500 MG CAPSULE (UD) PO SCH ×4 (05:40→23:47)
[2017-06-21] MEDS: NICOTINE POLACRILEX 4 MG GUM BC PRN ×2 (09:29→13:35)
[2017-06-21] MEDS: diazePAM 5 MG TABLET PO SCH ×2 (10:31→22:39)
[2017-06-21] MEDS: DIVALPROEX SODIUM 500 MG TABLET E.C. PO SCH ×2 (10:31→22:39)
[2017-06-21] MEDS: busPIRone HCL 5 MG TABLET PO SCH ×2 (10:31→22:39)
[2017-06-21] MEDS: PRENATAL VITAMINS W/ FOLIC ACID TABLET (FP) PO SCH (10:31)
[2017-06-21] MEDS: BACITRACIN 0.9 GM PACKET TP SCH ×4 (10:32→22:39)
--- NOTE | 2017-06-21 11:07 | PN ---
BHS Progress Note (SOAP) Subjective: ALERT,IRRITABLE,ANXIOUS,INTERRUPTED SLEEP,PAIN IN THE BODY AND BACK Objective: 06/21/17 11:10 Vital Signs Temperature 98.2 F 06/21/17 10:07 Pulse Rate 68 06/21/17 10:07 Respiratory Rate 18 06/21/17 10:07 Blood Pressure 98/60 06/21/17 10:07 O2 Sat by Pulse Oximetry (%) EKG SINUS BRADYCARDIA 55/MIN NO CHEST PAIN,NO SOB,NO DIZZINESS Laboratory Last Values WBC 4.8 K/mm3 (4.0-10.0) 06/19/17 07:50 RBC 4.07 M/mm3 (4.00-5.60) 06/19/17 07:50 Hgb 12.1 GM/dL (11.7-16.9) 06/19/17 07:50 Hct 37.4 % (35.4-49) 06/19/17 07:50 MCV 91.8 fl (80-96) 06/19/17 07:50 MCH 29.8 pg (25.7-33.7) 06/19/17 07:50 MCHC 32.4 g/dl (32.0-35.9) 06/19/17 07:50 RDW 14.4 % (11.9-15.9) 06/19/17 07:50 Plt Count 275 K/MM3 (134-434) 06/19/17 07:50 MPV 8.3 fl (7.5-11.1) D 06/19/17 07:50 Sodium 139 mmol/L (136-145) 06/19/17 07:50 Potassium 4.5 mmol/L (3.5-5.1) 06/19/17 07:50 Chloride 104 mmol/L (98-107) 06/19/17 07:50 Carbon Dioxide 28 mmol/L (21-32) 06/19/17 07:50 Anion Gap 7 (8-16) L 06/19/17 07:50 BUN 13 mg/dL (7-18) 06/19/17 07:50 Creatinine 0.8 mg/dL (0.7-1.3) D 06/19/17 07:50 Creat Clearance w eGFR > 60 (>60) 06/19/17 07:50 Random Glucose 83 mg/dL (74-106) D 06/19/17 07:50 Calcium 8.7 mg/dL (8.5-10.1) 06/19/17 07:50 Total Bilirubin 0.3 mg/dL (0.2-1.0) D 06/19/17 07:50 AST 22 U/L (15-37) 06/19/17 07:50 ALT 34 U/L (12-78) D 06/19/17 07:50 Alkaline Phosphatase 74 U/L (45-117) 06/19/17 07:50 Total Protein 7.1 g/dl (6.4-8.2) 06/19/17 07:50 Albumin 3.3 g/dl (3.4-5.0) L 06/19/17 07:50 Urine Color Yellow 06/18/17 21:00 Urine Appearance Slcloudy 06/18/17 21:00 Urine pH 6.0 (5.0-8.0) 06/18/17 21:00 Ur Specific [place] 1.020 (1.005-1.025) 06/18/17 21:00 Urine Protein Negative (NEGATIVE) 06/18/17 21:00 Urine Glucose (UA) Negative (NEGATIVE) 06/18/17 21:00 Urine Ketones Negative (NEGATIVE) 06/18/17 21:00 Urine Blood Negative (NEGATIVE) 06/18/17 21:00 Urine Nitrite Negative (NEGATIVE) 06/18/17 21:00 Urine Bilirubin Negative (NEGATIVE) 06/18/17 21:00 Urine Urobilinogen Negative mg/dL (0.2-1.0) 06/18/17 21:00 Ur Leukocyte Esterase Negative (NEGATIVE) 06/18/17 21:00 Valproic Acid 49.771 ug/ml (50-100) L 06/20/17 08:45 RPR Titer Nonreactive (NONREACTIVE) 06/19/17 07:50 Assessment: 06/21/17 11:13 WITHDRAWAL SYMPTOM Plan: CONTINUE DETOX
[2017-06-21] MEDS: THIAMINE HCL 100 MG TABLET (FP) PO SCH (22:39)
[2017-06-21] MEDS: OLANZapine 7.5 MG TABLET PO SCH (22:40)
[2017-06-22] MEDS ORDERED: METHADONE HCL 10 MG TABLET ONE (04:48)
[2017-06-22] MEDS ORDERED: METHADONE HCL 40 MG DISPERSABLE TABLET ONE (04:48)
[2017-06-22] MEDS: METHADONE 120 MG, METHADONE 10 MG PO SCH (06:02)
[2017-06-22] MEDS: CEPHALEXIN MONOHYDRATE 500 MG CAPSULE (UD) PO SCH (06:02)
[2017-06-22 06:18] VITALS: BP 109/50; PULSE 69; TEMP 97.4
--- NOTE | 2017-06-22 08:28 | DS ---
[facility] Detox Discharge Summary Admission Date: 06/18/17 Discharge Date: 06/22/17 - History Present History: Sedative Dependence, MMTP Additional Comments: follow up with after care program as arrangement Pertinent Past History: asthma mmtp nicotine dependence weight loss bipolar 2 disorder cellulitis left elbow - Physical Exam Results Vital Signs: Vital Signs Temperature 97.4 F L 06/22/17 06:18 Pulse Rate 69 06/22/17 06:18 Respiratory Rate 16 06/22/17 06:18 Blood Pressure 109/50 06/22/17 06:18 O2 Sat by Pulse Oximetry (%) Pertinent Admission Physical Exam Findings: withdrawal symptom - Treatment Hospital Course: Detox Protocol Followed, Detoxed Safely, Responded well, Discharged Condition Good Patient has Accepted a Rehab Referral to: laura - Medication Discharge Medications: Ambulatory Orders Albuterol Sulfate Inhaler - [Ventolin HFA Inhaler -] 2 inh IH Q4H PRN #1 inhaler 06/23/16 Divalproex *ER* [Depakote *ER* -] 1,000 mg PO HS 03/26/17 Buspirone HCl [Buspar -] 5 mg PO BID #60 tablet 03/27/17 Risperidone [Risperdal -] 0.25 mg PO BID #60 tablet 03/27/17 Divalproex *ER* [Depakote *ER* -] 500 mg PO AM 06/18/17 - Diagnosis (1) Sedative, hypnotic or anxiolytic dependence with withdrawal, uncomplicated Current Visit: Yes Status: Acute (2) Opioid dependence on agonist therapy Current Visit: Yes Status: Acute (3) Cellulitis of arm, left Current Visit: Yes Status: Acute (4) Nicotine dependence Current Visit: Yes Status: Acute Qualifiers: Nicotine product type: cigarettes Substance use status: in withdrawal Qualified Code(s): F17.213 - Nicotine dependence, cigarettes, with withdrawal; F17.213 - Nicotine dependence, cigarettes, with withdrawal (5) Weight loss Current Visit: Yes Status: Acute (6) Asthma Current Visit: Yes Status: Chronic Qualifiers: Asthma severity: moderate Asthma complication type: with status asthmaticus (7) Bipolar II disorder Current Visit: Yes Status: Suspected (8) Post traumatic stress disorder (PTSD) Current Visit: No Status: Acute - AMA Did Patient Leave Against Medical Advice: No
[2017-06-22] MEDS: busPIRone HCL 5 MG TABLET PO SCH (09:25)
[2017-06-22] MEDS: DIVALPROEX SODIUM 500 MG TABLET E.C. PO SCH (09:25)
[2017-06-22] MEDS: BACITRACIN 0.9 GM PACKET TP SCH (09:26)
[2017-06-22] MEDS: NICOTINE POLACRILEX 4 MG GUM BC PRN (09:28)
[2017-06-22] MEDS: PRENATAL VITAMINS W/ FOLIC ACID TABLET (FP) PO SCH (09:28)
[2017-06-22] MEDS ORDERED: diazePAM 5 MG TABLET PO SCH (10:00)
== END 2017-06-22 09:36 | disposition home or self-care (01) | DRG 773 ==
LOC: YASAS 11:39 → Y6N 17:02
PROVIDERS: ADMIT Internal Medicine; ATTEND Internal Medicine
PROC: HZ2ZZZZ Detoxification Services for Substance Abuse Treatment (ICD-10-PCS; principal; 2017-06-18)
DX: F13.230 Sedative, hypnotic or anxiolytic dependence with withdrawal, uncomplicated (principal); F11.20 Opioid dependence, uncomplicated; F14.20 Cocaine dependence, uncomplicated; F17.213 Nicotine dependence, cigarettes, with withdrawal; F31.81 Bipolar II disorder; F43.10 Post-traumatic stress disorder, unspecified; F90.9 Attention-deficit hyperactivity disorder, unspecified type; L03.114 Cellulitis of left upper limb; J45.30 Mild persistent asthma, uncomplicated; J44.9 Chronic obstructive pulmonary disease, unspecified; R00.1 Bradycardia, unspecified; Z86.69 Personal history of other diseases of the nervous system and sense organs; Z87.898 Personal history of other specified conditions; Z91.5 Personal history of self-harm
CPT/HCPCS: 36415; 80053; 80164; 81003; 85027; 86593; 93005; 93010